=== PATIENT | male | born 1950 | race Hispanic/Latino ===

== ENCOUNTER 2022-05-14 10:16 | Emergency (ER) | payer MEDICARE ==
--- NOTE | 2022-05-14 11:00 | Event Note ---
ED Screening Note ED Screening Note: to er with son here for mental health placement no hi no si many medical problems including stage IV melanoma ? medical issues cooperative a/o ? family support as an issue This initial assessment/diagnostic orders/clinical plan/treatment(s) is/are subject to change based on patients health status, clinical progression and re- assessment by fellow clinical providers in the ED. Further treatment and workup at subsequent clinical providers discretion. Patient/guardian urged not to elope from the ED as their condition may be serious if not clinically assessed and managed. Initial orders include: to main for eval
[2022-05-14 11:47] LABS: Albumin 4.7 g/dL (3.9-5); Calcium 9.4 mg/dL (8.4-10.2)
[2022-05-14 12:01] LABS: Basophils % (Auto) 0.5 % (0.0-1.8); Eosinophils # (Auto) 0.2 K/mm3 (0.0-0.4); Eosinophils % (Auto) 2.8 % (0.0-4.3); Hematocrit 30.7 % (35.5-45.6); Hemoglobin 9.7 gm/dl (11.8-15.2); Lymphocytes # (Auto) 1.4 K/mm3 (1.2-5.4); Lymphocytes % (Auto) 19.6 % (13.4-35.0); Mean Corpuscular HGB Conc 32 % (32-34); Mean Corpuscular Volume 81 fl (84-94); Monocytes # (Auto) 0.4 K/mm3 (0.0-0.8); Monocytes % (Auto) 6.2 % (0.0-7.3); Platelet Count 204 K/mm3 (140-440); Red Blood Count 3.77 M/mm3 (3.65-5.03); Red Cell Distribution Width 19.3 % (13.2-15.2)
--- NOTE | 2022-05-14 12:02 | Emergency Department Report ---
<STACEY SILVEIRA - Last Filed: 05/14/22 15:14> ED Psych HPI - General Chief Complaint: Medical Clearance Stated Complaint: PSYCH EVAL AND MED MANAGEMENT Time Seen by Provider: 05/14/22 10:38 Source: patient Mode of arrival: Ambulatory Limitations: No Limitations - History of Present Illness Initial Comments: 72-year-old male with a past medical history hypertension, diabetes, elevated cholesterol, CABG x4, and melanoma currently on chemo every month at [facility] presents to the hospital for medical clearance to return to his assisted living facility. 2 weeks ago patient states that he wanted to go to [place]. The assisted living said that he could not go to [place] because if something happens while in [place] then the assisted living facility may be liable. Patient was then sent to [facility] for psychiatric assessment on a 1013. he was subsequently discharged from the hospital and states that he went to [place] for 2 weeks. He now returns from [place] and was told that he cannot return to the residential and so he received psychiatric clearance. Patient denies suicidal ideation, homicidal ideation, psychosis, or physical complaints. He has been compliant with his medications - Related Data Allergies Allergy/AdvReac Type Severity Reaction Status Date / Time No Known Allergies Allergy Verified 05/14/22 10:24 ED Review of Systems Comment: All other systems reviewed and negative ED Physical Exam - General Limitations: No Limitations - Other Other exam information: General: No acute distress Head: Atraumatic Eyes: normal appearance ENT: Moist mucous membranes Neck: Normal appearance, no midline tenderness Chest: Clear to auscultation bilaterally CV: Regular rate and rhythm Abdomen: Soft, normal bowel sounds, nontender, nondistended, no rebound or guarding Back: Normal inspection Extremity: Normal inspection, full range of motion Neuro: Alert O x 3, no facial asymmetry, speech clear, no gross motor sensory deficit Psych: Appropriate behavior Skin: No rash ED Course - Reevaluation(s) Reevaluation #1: 05/14/22 15:17 ua still pending - Consultations Consultation #1: 05/14/22 14:03 case d/w PATIENT REGISTRATION SPECIALIST occupational psychologist Wanda, she will come to evaluate pt 05/14/22 15:14 Patient was seen by nurse practitioner. She will call assisted living facility prior to patient discharge to ensure that they will accept him back into explained that he is cleared from a mental health perspective ED Medical Decision Making - Lab Data Result diagrams: 05/14/22 11:11 05/14/22 11:11 - Medical Decision Making 72-year-old male presents to the hospital requesting psychiatric and medical clearance to return back to assisted living facility. He went to [place] for 2 weeks and he had refused to allow him back without clearance. Patient with mental health provider and deemed not to be a 1013 candidate. Patient pending dispo back to assisted living facility once it can be confirmed that they will be excepted back. Dr. Smith will follow. Patient prepped for discharge. PATIENT REGISTRATION SPECIALIST was unable to get a hold of assisted living provider. Message left. SHe will call sister if he is able to provide a number please f/u UA Critical Care Time: No ED Disposition Clinical Impression: Encounter for psychiatric assessment Disposition: HOME / SELF CARE / HOMELESS Is pt being admited?: No Condition: Stable Additional Instructions: OUTPATIENT MENTAL HEALTH RESOURCES [facility], [facility] Samantha Duenas MD: [address] [facility] [address] [place] [address] [place], [place] [id number] [facility]: [facility] [address] [place] [address] [place] [address] [phone] [facility]: [facility] Healthcare: [address] [place] [address] [address] [place] [address] [place] [address] [facility] [address] [facility]: David Gaitan MD: [id number] [facility] [address] [facility] [id number] [facility]: [address] [facility] [place], [place] [id number] [phone] [place] CRISIS AND ACCESS LINE: Professional and Agency Contacts To help Resolve Crises (30/05) [place] Crisis Line: Suicide Prevention Line: Crisis Text Line: Text START to 757839 Emergency: 911 Outpatient COMMUNITY Behavioral Health Resources: OSIELB: [facility] [address] [place], [place] [address] ASHBY: [facility] [address] [place] [address] Tuesday thru Tuesday - 8am - 5pm Call to schedule an assessment for mental health and substance abuse programs [facility] Address: [address] [place] [address] Tuesday thru Tuesday- 7am-2pm [facility] Address: [address] [place] [address] Tuesday thru Tuesday: 8:30AM-5PM Referrals: your, doctor [Other] - 3-5 Days <ELLE SMITH - Last Filed: 05/14/22 17:45> ED Review of Systems ROS: Stated complaint: PSYCH EVAL AND MED MANAGEMENT Other details as noted in HPI ED Course Vital Signs 05/14/22 05/14/22 10:24 12:38 Temperature 98.2 F Pulse Rate 73 Respiratory 16 Rate Blood Pressure 130/89 [Left] O2 Sat by Pulse 99 98 Oximetry ED Medical Decision Making - Lab Data Result diagrams: 05/14/22 11:11 05/14/22 11:11 - Medical Decision Making pt was handed over to me to check results of urine test and arrange for discharge Critical care attestation.: If time is entered above; I have spent that time in minutes in the direct care of this critically ill patient, excluding procedure time. ED Disposition Is pt being admited?: No Does the pt Need Aspirin: No
[2022-05-14 13:05] LABS: Amphetamine Screen,Urine Negative; Benzodiazepines Screen,Urine Negative; Cannabinoid Screen,Urine Negative; Cocaine Screen,Urine Negative; Methadone Screen,Urine Negative; Opiate Screen,Urine Negative
[2022-05-14 15:23] LABS: Mucus,Urine FEW /HPF
[2022-05-14 15:49] LABS: Bilirubin,Urine Negative (Negative); Blood,Urine Negative (Negative); Color,Urine Yellow (Yellow); Protein,Urine <15 mg/dL mg/dL (Negative); Urobilinogen,Urine < 2.0 mg/dL (<2.0)
--- NOTE | 2022-05-14 16:30 | History and Physical Report ---
GP History & Physical - History of Present Illness Date of admission: 05/14/22 Date of Examination: 05/14/22 Reason for Admission: Extensive Evaluation Required, Other (MHE) History of Present Illness: HPI -PAST PSYCHIATRIC HISTORY: Patient states " there is nothing wrong with me". Patient stated that he was scheduled to go to see family two weeks ago and the facility that he was in was refusing to let him go and he raised his voice and was sent out to [facility] on a 1013, states [facility] cleared him and he was able to go to [place] for the past 2 weeks but was not allowed to come back to the facility he was previously in without being cleared by psych. Patient was alert and oriented when i spoke with him and a good historian. Patient denies any SI/HI at this time. Patient would be cleared from psych stand point a there is no need at this time. Suicide attempts or Self-harm behavior: No Prior psychiatric hospitalizations Substance Abuse history: No Previous psychiatric medications tried: Yes Outpatient treatment: PAST MEDICAL HISTORY: Family Psychiatric History None reported or documented SOCIAL HISTORY Marital Status: Living Arrangements: [facility] Employment Status: Retired Access to guns/weapons: No Education: History of Abuse: Legal History: No REVIEW OF SYSTEMS REVIEW OF SYSTEMS Constitutional: Negative for weight loss ENT: Negative for stridor Respiratory: Negative for cough or hemoptysis All other systems reviewed and are negative Diagnoses: Treatment Plan Patient will be cleared at this time Patient will be provided with a safe and structured environment. Patient's physical health needs will be addressed by the Hospitalist. Hospitalist Consulted Social Assessment will be completed and the Fire Fighters Dispatcher will work with patient and family to ensure a suitable and safe disposition Medication adjustment will be made as clinically indicated History of Present Illness Initial Comments: 72-year-old male with a past medical history hypertension, diabetes, elevated cholesterol, CABG x4, and melanoma currently on chemo every month at [facility] presents to the hospital for medical clearance to return to his assisted living facility. 2 weeks ago patient states that he wanted to go to [place]. The assisted living said that he could not go to [place] because if something happens while in [place] then the assisted living facility may be liable. Patient was then sent to [facility] for psychiatric assessment on a 1013. he was subsequently discharged from the hospital and states that he went to [place] for 2 weeks. He now returns from [place] and was told that he cannot return to the residential and so he received psychiatric clearance. Patient denies suicidal ideation, homicidal ideation, psychosis, or physical complaints. He has been compliant with his medications - Related Data Allergies Allergy/AdvReac Type Severity Reaction Status Date / Time No Known Allergies Allergy Verified 05/14/22 10:24 ED Review of Systems ROS: Stated complaint: PSYCH EVAL AND MED MANAGEMENT Other details as noted in HPI Comment: All other systems reviewed and negative ED Physical Exam - General Limitations: No Limitations - Other Other exam information: General: No acute distress Head: Atraumatic Eyes: normal appearance ENT: Moist mucous membranes Neck: Normal appearance, no midline tenderness Chest: Clear to auscultation bilaterally CV: Regular rate and rhythm Abdomen: Soft, normal bowel sounds, nontender, nondistended, no rebound or guarding Back: Normal inspection Extremity: Normal inspection, full range of motion Neuro: Alert O x 3, no facial asymmetry, speech clear, no gross motor sensory deficit Psych: Appropriate behavior Skin: No rash ED Course Vital Signs 05/14/22 05/14/22 10:24 12:38 Temperature 98.2 F Pulse Rate 73 Respiratory 16 Rate Blood Pressure 130/89 [Left] O2 Sat by Pulse 99 98 Oximetry - Reevaluation(s) Reevaluation #1: 05/14/22 15:17 ua still pending - Consultations Consultation #1: 05/14/22 14:03 case d/w HYDROGENATION STILL OPERATOR psychiatric registered nurse Wanda, she will come to evaluate pt 05/14/22 15:14 Patient was seen by nurse practitioner. She will call assisted living facility prior to patient discharge to ensure that they will accept him back into explained that he is cleared from a mental health perspective ED Medical Decision Making - Lab Data Result diagrams: 05/14/22 11:11 05/14/22 11:11 - Medical Decision Making 72-year-old male presents to the hospital requesting psychiatric and medical clearance to return back to assisted living facility. He went to [place] for 2 weeks and he had refused to allow him back without clearance. Patient with mental health provider and deemed not to be a 1013 candidate. Patient pending dispo back to assisted living facility once it can be confirmed that they will be excepted back. Dr. Fay will follow. Patient prepped for discharge. HYDROGENATION STILL OPERATOR was unable to get a hold of assisted living provider. Message left. SHe will call sister if he is able to provide a number please f/u UA Critical Care Time: No Critical care attestation.: If time is entered above; I have spent that time in minutes in the direct care of this critically ill patient, excluding procedure time. ED Disposition Clinical Impression: Encounter for psychiatric assessment Disposition: HOME / SELF CARE / HOMELESS Is pt being admited?: No Condition: Stable Referrals: your, doctor [Other] - 3-5 Days Legal Status: Voluntary Reaction to Hospitalization: Accepting Medications and Allergies Allergies Allergy/AdvReac Type Severity Reaction Status Date / Time No Known Allergies Allergy Verified 05/14/22 10:24 Results - Results Labs/Vitals: Laboratory Last Values WBC 7.0 K/mm3 (4.5-11.0) 05/14/22 11:11 RBC 3.77 M/mm3 (3.65-5.03) 05/14/22 11:11 Hgb 9.7 gm/dl (11.8-15.2) L 05/14/22 11:11 Hct 30.7 % (35.5-45.6) L 05/14/22 11:11 MCV 81 fl (84-94) L 05/14/22 11:11 MCH 26 pg (28-32) L 05/14/22 11:11 MCHC 32 % (32-34) 05/14/22 11:11 RDW 19.3 % (13.2-15.2) H 05/14/22 11:11 Plt Count 204 K/mm3 (140-440) 05/14/22 11:11 Lymph % (Auto) 19.6 % (13.4-35.0) 05/14/22 11:11 [place] % (Auto) 6.2 % (0.0-7.3) 05/14/22 11:11 Eos % (Auto) 2.8 % (0.0-4.3) 05/14/22 11:11 Baso % (Auto) 0.5 % (0.0-1.8) 05/14/22 11:11 Lymph # (Auto) 1.4 K/mm3 (1.2-5.4) 05/14/22 11:11 [place] # (Auto) 0.4 K/mm3 (0.0-0.8) 05/14/22 11:11 Eos # (Auto) 0.2 K/mm3 (0.0-0.4) 05/14/22 11:11 Baso # (Auto) 0.0 K/mm3 (0.0-0.1) 05/14/22 11:11 Seg Neutrophils % 70.9 % (40.0-70.0) H 05/14/22 11:11 Seg Neutrophils # 5.0 K/mm3 (1.8-7.7) 05/14/22 11:11 Sodium 141 mmol/L (137-145) 05/14/22 11:11 Potassium 4.6 mmol/L (3.6-5.0) 05/14/22 11:11 Chloride 105.7 mmol/L (98-107) 05/14/22 11:11 Carbon Dioxide 24 mmol/L (22-30) 05/14/22 11:11 Anion Gap 16 mmol/L 05/14/22 11:11 BUN 19 mg/dL (9-20) 05/14/22 11:11 Creatinine 1.4 mg/dL (0.8-1.3) H 05/14/22 11:11 Estimated GFR 50 ml/min 05/14/22 11:11 BUN/Creatinine Ratio 14 % 05/14/22 11:11 Glucose 89 mg/dL (75-100) 05/14/22 11:11 Calcium 9.4 mg/dL (8.4-10.2) 05/14/22 11:11 Total Bilirubin 0.30 mg/dL (0.1-1.2) 05/14/22 11:11 AST 18 units/L (5-40) 05/14/22 11:11 ALT 15 units/L (7-56) 05/14/22 11:11 Alkaline Phosphatase 62 units/L (35-129) 05/14/22 11:11 Total Protein 7.6 g/dL (6.3-8.2) 05/14/22 11:11 Albumin 4.7 g/dL (3.9-5) 05/14/22 11:11 Albumin/Globulin Ratio 1.6 % 05/14/22 11:11 Urine Color Yellow (Yellow) 05/14/22 11:53 Urine Turbidity Clear (Clear) 05/14/22 11:53 Urine pH 6.0 (5.0-7.0) 05/14/22 11:53 Ur Specific [place] 1.020 (1.003-1.030) 05/14/22 11:53 Urine Protein <15 mg/dl mg/dL (Negative) 05/14/22 11:53 Urine Glucose (UA) Negative mg/dL (Negative) 05/14/22 11:53 Urine Ketones Negative mg/dL (Negative) 05/14/22 11:53 Urine Blood Negative (Negative) 05/14/22 11:53 Urine Nitrite Negative (Negative) 05/14/22 11:53 Ur Reducing Substances Not Reportable 05/14/22 11:53 Urine Bilirubin Negative (Negative) 05/14/22 11:53 Urine Ictotest Not Reportable 05/14/22 11:53 Urine Urobilinogen < 2.0 mg/dL (<2.0) 05/14/22 11:53 Ur Leukocyte Esterase Negative (Negative) 05/14/22 11:53 Urine WBC (Auto) 3.0 /HPF (0.0-6.0) 05/14/22 11:53 Urine RBC (Auto) 1.0 /HPF (0.0-6.0) 05/14/22 11:53 Urine Mucus Few /HPF 05/14/22 11:53 Salicylates < 0.3 mg/dL (2.8-20.0) L 05/14/22 11:11 Urine Opiates Screen Negative 05/14/22 11:53 Urine Methadone Screen Negative 05/14/22 11:53 Acetaminophen 5.0 ug/mL (10.0-30.0) L 05/14/22 11:11 Ur Barbiturates Screen Negative 05/14/22 11:53 Ur Phencyclidine Scrn Negative 05/14/22 11:53 Ur Amphetamines Screen Negative 05/14/22 11:53 U Benzodiazepines Scrn Negative 05/14/22 11:53 Urine Cocaine Screen Negative 05/14/22 11:53 U Marijuana (THC) Screen Negative 05/14/22 11:53 Drugs of Abuse Note Disclamer 05/14/22 11:53 Plasma/Serum Alcohol < 0.01 % (0-0.07) 05/14/22 11:11 Last Vital Signs Temp 98.2 F 05/14/22 10:24 Pulse 73 05/14/22 10:24 Resp 16 05/14/22 10:24 BP 130/89 05/14/22 10:24 Pulse Ox 98 05/14/22 12:38 Physical Examination - Constitutional Vitals: Vital Signs Temp Pulse Resp BP Pulse Ox 98.2 F 73 16 130/89 98 05/14/22 10:24 05/14/22 10:24 05/14/22 10:24 05/14/22 10:24 05/14/22 12:38 Temperature -Last 24 Hours Temperature 98.2 F Mental Status Exam - Vital signs Last Vital Signs Temp 98.2 F 05/14/22 10:24 Pulse 73 05/14/22 10:24 Resp 16 05/14/22 10:24 BP 130/89 05/14/22 10:24 Pulse Ox 98 05/14/22 12:38 Physician Certification - Certification Statement Physician Certification Statement: This is an acknowledgement statement that EDGAR REILLY is a 72 year old M who requires inpatient psychiatric admission for treatment which could reasonably be expected to improve the patient's condition for Estimated period of time patient will need to remain in the hospital: [ ] Plan for post-hospital care: [ ]
[2022-05-14 20:20] VITALS: BP 128/78
== END 2022-05-14 20:21 | disposition home or self-care (01) ==
LOC: ED 10:16
DX: Z13.30 Encounter for screening examination for mental health and behavioral disorders, unspecified (principal); Z79.899 Other long term (current) drug therapy
CPT/HCPCS: 36415; 80053; 80307; 80320; 81001; 85025; 99284; G0480